=== PATIENT | female | born 1985 | race American Indian/Alaskan Native ===

== ENCOUNTER 2017-03-09 11:26 | Emergency (ER) | payer OTHER ==
[~2017-03-09] VITALS: Ht 157.5 cm; Wt 71.2 kg
[2017-03-09] MEDS ORDERED: PRILOSEC OTC20 MG PO (13:42)
== END 2017-03-09 13:40 | disposition home or self-care (01) ==
LOC: ER 11:26
DX: K21.9 Gastro-esophageal reflux disease without esophagitis (principal); J02.9 Acute pharyngitis, unspecified

== ENCOUNTER 2017-10-20 19:27 | Emergency (ER) | payer OTHER ==
[~2017-10-20] VITALS: Ht 162.6 cm; Wt 70.3 kg
[~2017-10-20 19:27] MED LIST: PRILOSEC OTC20 MG PO
[2017-10-20] MEDS ORDERED: BENADRYL25 MG PO (20:23)
[2017-10-20] MEDS ORDERED: MOBIC15 MG PO (20:23)
[2017-10-20 21:46] VITALS: BP 105/70
== END 2017-10-20 21:49 | disposition home or self-care (01) ==
LOC: ER 19:27
DX: G47.9 Sleep disorder, unspecified (principal); R20.2 Paresthesia of skin; R51 Headache

== ENCOUNTER 2017-10-21 02:23 | Emergency (ER) | payer OTHER ==
[~2017-10-21] VITALS: Ht 180.3 cm; Wt 70.3 kg
[~2017-10-21 02:23] MED LIST changes: +BENADRYL25 MG PO; +MOBIC15 MG PO
== END 2017-10-21 03:17 | disposition home or self-care (01) ==
LOC: ER 02:23
DX: G47.00 Insomnia, unspecified (principal); F41.9 Anxiety disorder, unspecified

== ENCOUNTER 2017-10-22 02:14 | Emergency (ER) | payer OTHER ==
[~2017-10-22] VITALS: Ht 180.3 cm; Wt 74.8 kg
--- NOTE | ~2017-10-22 | EKG ---
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
[2017-10-22 02:48] LABS: HEMATOCRIT 37.9 % (37.0-47.0); HEMOGLOBIN 12.4 gm/dL (12.0-15.0); MCH 27.4 pg (26.0-34.0); MCHC 32.7 g/dL (28.0-37.0); MCV 83.9 fL (80.0-100.0); RBC 4.52 mil/uL (4.20-5.00); RDW 13.6 % (10.5-14.5); WBC 12.8 thou/uL (4.0-11.0)
[2017-10-22 02:54] LABS: CALCIUM 8.9 mg/dL (8.5-10.1); POTASSIUM 3.5 mmol/L (3.5-5.1)
[2017-10-22 04:53] VITALS: BP 105/65
[2017-10-23] MEDS ORDERED: HYDROXYZINE HCL25 M1 PO (17:55)
[2017-10-23] MEDS ORDERED: XANAX 0.25 MG0.25 MG PO (21:46)
[2017-10-23] MEDS ORDERED: PROZAC20 MG PO (21:46)
[2017-10-23] MEDS ORDERED: TRAZODONE HCL50 MG PO (21:48)
== END 2017-10-22 04:59 | disposition home or self-care (01) ==
LOC: ER 02:14
PROVIDERS: Emergency Medicine
DX: G47.00 Insomnia, unspecified (principal); G43.909 Migraine, unspecified, not intractable, without status migrainosus

== ENCOUNTER 2017-10-23 17:05 | Emergency (ER) | payer OTHER ==
[~2017-10-23] VITALS: Ht 154.9 cm; Wt 70.3 kg
[2017-10-23] MEDS ORDERED: HYDROXYZINE HCL25 M1 PO (17:55)
[2017-10-23 18:37] LABS: AMP/METHAMP Negative (Negative); BARBITURATES Negative (Negative); BENZODIAZEPINES Negative (Negative); COCAINE Negative (Negative); METHADONE Negative (Negative); OPIATES Negative (Negative); PCP Negative (Negative)
[2017-10-23] MEDS ORDERED: PROZAC20 MG PO (21:46)
[2017-10-23] MEDS ORDERED: XANAX 0.25 MG0.25 MG PO (21:46)
[2017-10-23] MEDS ORDERED: TRAZODONE HCL50 MG PO (21:48)
[2017-10-23 22:20] VITALS: BP 121/64
== END 2017-10-23 22:21 | disposition home or self-care (01) ==
LOC: ER 17:05
PROVIDERS: Nurse Practitioner Family
DX: F41.1 Generalized anxiety disorder (principal); F41.0 Panic disorder [episodic paroxysmal anxiety]; G47.9 Sleep disorder, unspecified; F32.9 Major depressive disorder, single episode, unspecified

== ENCOUNTER 2017-10-24 02:40 | Emergency (ER) | payer OTHER ==
[~2017-10-24] VITALS: Ht 154.9 cm; Wt 71.7 kg
[~2017-10-24 02:40] MED LIST changes: +HYDROXYZINE HCL25 M1 PO; +PROZAC20 MG PO; +TRAZODONE HCL50 MG PO; +XANAX 0.25 MG0.25 MG PO
[2017-10-24 05:34] VITALS: BP 120/69
== END 2017-10-24 05:37 | disposition home or self-care (01) ==
LOC: ER 02:40
DX: F41.9 Anxiety disorder, unspecified (principal); F32.9 Major depressive disorder, single episode, unspecified

== ENCOUNTER 2017-12-08 09:03 | Emergency (ER) | payer OTHER ==
[~2017-12-08] VITALS: Ht 154.9 cm; Wt 68.5 kg
[2017-12-08] MEDS ORDERED: ALPRAZOLAM 0.0.25 M1 PO (09:43)
[2017-12-08 10:37] VITALS: BP 104/68
== END 2017-12-08 10:38 | disposition home or self-care (01) ==
LOC: ER 09:03
DX: F41.9 Anxiety disorder, unspecified (principal); R53.83 Other fatigue; F32.9 Major depressive disorder, single episode, unspecified